=== PATIENT | male | born 1995 | race Caucasian/White ===

== ENCOUNTER 2019-05-31 18:22 | Inpatient (IN) | payer MEDICAID ==
[~2019-05-31] VITALS: Ht 167.6 cm; Wt 86.0 kg
[2019-05-31] MEDS ORDERED: HALOPERIDOL 5 MG TABLET PO PRN (22:00)
[2019-05-31 22:25] VITALS: BP 110/70
[2019-05-31] MEDS ORDERED: ZOLPIDEM TARTRATE 10 MG TABLET ONE (22:50)
[2019-05-31] MEDS: ZOLPIDEM TARTRATE 10 MG TABLET PO PRN (23:17)
[2019-06-01] MEDS ORDERED: IBUPROFEN 400 MG TABLET PO PRN (06:45)
[2019-06-01] MEDS ORDERED: MAGNESIUM HYDROXIDE SUSPENSION 30 ML UDCUP PO PRN (06:45)
[2019-06-01] MEDS ORDERED: DOCUSATE SODIUM 100 MG CAPSULE PO PRN (06:45)
[2019-06-01] MEDS ORDERED: PETROLATUM,WHITE 28 GM JELLY TP PRN (06:45)
[2019-06-01] MEDS ORDERED: NICOTINE 14 MG/24 HOUR PATCH TD PRN (06:45)
[2019-06-01] MEDS ORDERED: MAG HYDROX/AL HYDROX/SIMETH ES 30 ML SUSPENSION UDCUP PO PRN (06:45)
[2019-06-01] MEDS ORDERED: ONDANSETRON HCL 4 MG TABLET PO PRN (06:45)
[2019-06-01] MEDS ORDERED: ALBUTEROL SULFATE HFA 90 MCG/PUFF 8 GM INHALER IH PRN (06:45)
[2019-06-01] MEDS ORDERED: GuaiFENesin/D-METHORPHAN [SUGAR-FREE] 200-20MG/10 ML SYRUP UDCUP PO PRN (06:45)
[2019-06-01] MEDS ORDERED: LOPERAMIDE HCL 2 MG CAPSULE PO PRN (06:45)
[2019-06-01] MEDS ORDERED: CloNIDine HCL 0.1 MG TABLET PO PRN (06:45)
[2019-06-01] MEDS ORDERED: ACETAMINOPHEN 325 MG TABLET PO PRN (06:45)
[2019-06-01 08:21] VITALS: BP 112/60
[2019-06-01] MEDS: LORazepam 2 MG TABLET PO PRN ×3 (09:25→21:03)
[2019-06-01] MEDS: PARoxetine HCL 20 MG TABLET PO SCH (12:44)
[2019-06-01] MEDS: ZOLPIDEM TARTRATE 10 MG TABLET PO PRN (21:02)
[2019-06-02] MEDS: LORazepam 2 MG TABLET PO PRN ×3 (07:38→20:12)
[2019-06-02] MEDS: PARoxetine HCL 20 MG TABLET PO SCH (09:37)
[2019-06-02] MEDS: RisperiDONE 1 MG TABLET PO SCH ×2 (11:45→13:22)
[2019-06-02] MEDS: ZOLPIDEM TARTRATE 10 MG TABLET PO PRN (20:12)
[2019-06-03] MEDS: LORazepam 2 MG TABLET PO PRN ×2 (08:34→13:42)
[2019-06-03] MEDS: RisperiDONE 1 MG TABLET PO SCH (09:00)
[2019-06-03] MEDS: PARoxetine HCL 20 MG TABLET PO SCH (09:12)
[2019-06-03] MEDS: ZOLPIDEM TARTRATE 10 MG TABLET PO PRN (20:43)
[2019-06-04] MEDS: PARoxetine HCL 20 MG TABLET PO SCH (08:31)
[2019-06-04] MEDS: RisperiDONE 1 MG TABLET PO SCH (08:32)
[2019-06-04] MEDS: LORazepam 2 MG TABLET PO PRN ×3 (09:15→20:24)
[2019-06-04] MEDS: ZOLPIDEM TARTRATE 10 MG TABLET PO PRN (20:25)
[2019-06-05 08:14] VITALS: BP 122/75
[2019-06-05] MEDS: RisperiDONE 1 MG TABLET PO SCH (09:00)
[2019-06-05] MEDS: PARoxetine HCL 20 MG TABLET PO SCH (09:11)
[2019-06-05] MEDS: LORazepam 2 MG TABLET PO PRN ×2 (14:35→18:42)
[2019-06-05 16:00] VITALS: BP 128/77
[2019-06-05] MEDS: ZOLPIDEM TARTRATE 10 MG TABLET PO PRN (20:50)
[2019-06-06 08:02] VITALS: BP 131/59
[2019-06-06] MEDS: RisperiDONE 1 MG TABLET PO SCH (08:12)
[2019-06-06] MEDS: PARoxetine HCL 20 MG TABLET PO SCH (08:13)
[2019-06-06] MEDS: LORazepam 2 MG TABLET PO PRN ×2 (08:13→18:01)
[2019-06-06 16:00] VITALS: BP 141/73
[2019-06-06] MEDS: ZOLPIDEM TARTRATE 10 MG TABLET PO PRN (20:00)
[2019-06-07] MEDS: PARoxetine HCL 20 MG TABLET PO SCH (08:20)
[2019-06-07] MEDS: LORazepam 2 MG TABLET PO PRN ×2 (08:20→13:39)
[2019-06-07] MEDS: RisperiDONE 1 MG TABLET PO SCH (08:21)
[2019-06-07 08:44] VITALS: BP 122/69
[2019-06-07] MEDS: ZOLPIDEM TARTRATE 10 MG TABLET PO PRN (20:01)
[2019-06-08] MEDS: PARoxetine HCL 20 MG TABLET PO SCH (08:14)
[2019-06-08 08:21] VITALS: BP 112/76
[2019-06-08] MEDS: RisperiDONE 1 MG TABLET PO SCH (09:00)
[2019-06-08] MEDS: LORazepam 2 MG TABLET PO PRN ×3 (09:07→19:35)
[2019-06-08 16:19] VITALS: BP 131/69
[2019-06-08] MEDS: ZOLPIDEM TARTRATE 10 MG TABLET PO PRN (20:30)
[2019-06-09] MEDS: PARoxetine HCL 20 MG TABLET PO SCH (08:08)
[2019-06-09] MEDS: RisperiDONE 1 MG TABLET PO SCH (08:08)
[2019-06-09] MEDS: LORazepam 2 MG TABLET PO PRN ×3 (08:08→19:37)
[2019-06-09 08:48] VITALS: BP 116/63
[2019-06-09] MEDS: ARIPiprazole 5 MG TABLET PO SCH (09:29)
[2019-06-09 16:05] VITALS: BP 109/60
[2019-06-09] MEDS: ZOLPIDEM TARTRATE 10 MG TABLET PO PRN (21:00)
[2019-06-10 00:16] VITALS: BP 120/73
[2019-06-10] MEDS: LORazepam 2 MG TABLET PO PRN (08:03)
[2019-06-10 08:06] VITALS: BP 128/73
[2019-06-10] MEDS: ARIPiprazole 5 MG TABLET PO SCH (08:36)
[2019-06-10] MEDS ORDERED: PARoxetine HCL 20 MG TABLET PO SCH (09:00)
[2019-06-10] MEDS ORDERED: PARO20TA24 PO (10:07)
[2019-06-10] MEDS ORDERED: ARIP5TAB8 PO (10:07)
== END 2019-06-10 13:30 | disposition home or self-care (01) | DRG 750 ==
LOC: B3A 23:10 → B2S 06-07 13:01
PROVIDERS: ADMIT Psychiatry & Neurology Child & Adolescent Psychiatry; ATTEND Psychiatry & Neurology Child & Adolescent Psychiatry
DX: F20.9 Schizophrenia, unspecified (principal); R45.851 Suicidal ideations; Z91.14 Patient's other noncompliance with medication regimen; F41.9 Anxiety disorder, unspecified; K59.00 Constipation, unspecified; Z79.899 Other long term (current) drug therapy

== ENCOUNTER 2020-05-28 20:53 | Emergency (ER) | payer MEDICAID, OTHER ==
[~2020-05-28] VITALS: Ht 162.6 cm; Wt 90.9 kg
[~2020-05-28 20:53] MED LIST: ARIP5TAB8 PO; PARO20TA24 PO
[2020-05-28] MEDS ORDERED: ARIP10TA8 PO (21:14)
[2020-05-28 21:19] LABS: BASOPHILS % (AUTO) 0.5 % (0.0-2.0); EOSINOPHILS % (AUTO) 1.6 % (1.0-6.0); HEMATOCRIT 45.8 % (41-53); HEMOGLOBIN 15.8 g/dL (13.5-17.5); LYMPHOCYTES # (AUTO) 2.4 K/uL (1.0-4.8); LYMPHOCYTES % (AUTO) 28.1 % (22.0-44.0); MEAN CORPUSCULAR HEMOGLOBIN 31.3 pg (26.0-34.0); MEAN CORPUSCULAR HGB CONC 34.5 G/dL (31.0-37.0); MEAN CORPUSCULAR VOLUME 91 fL (80-100); MONOCYTES # (AUTO) 0.6 K/uL (0.1-1.0); MONOCYTES % (AUTO) 7.5 % (2.0-9.0); NEUTROPHILS # (AUTO) 5.4 K/uL (1.8-7.7); NEUTROPHILS % (AUTO) 62.3 % (40.0-70.0); PLATELET COUNT (AUTO) 268 K/uL (150-450); RED BLOOD CELL COUNT(AUTO) 5.06 MIL/uL (4.50-5.90)
[2020-05-28 21:42] LABS: ANION GAP 7 mmol/L (8-16); CALCIUM, TOTAL 9.3 mg/dL (8.8-10.5); CARBON DIOXIDE 28 mmol/L (22-29); CHLORIDE 102 mmol/L (98-107); CREATININE 0.89 mg/dL (0.60-1.30); GLOMERULAR FILTR. RATE CALC > 60 mL/min (>60); GLUCOSE,RANDOM 114 mg/dL (70-110); POTASSIUM 3.7 mmol/L (3.5-5.1); SODIUM SERUM 137 mmol/L (136-145); UREA NITROGEN, BLOOD 8 mg/dL (7-18)
[2020-05-28 21:50] LABS: ALANINE AMINOTRANSFERASE 83 U/L (12-78); ALKALINE PHOSPHATASE 69 U/L (46-116); ASPARTATE AMINOTRANSFERASE 45 U/L (15-37); BILIRUBIN,TOTAL 0.4 mg/dL (0.1-1.0); TOTAL PROTEIN, SERUM 7.5 g/dL (6.4-8.2)
[2020-05-28 21:50] LABS: APPEARANCE,URINE CLEAR (CLEAR); BILIRUBIN,URINE NEGATIVE (NEGATIVE); GLUCOSE, URINE (UA) NEGATIVE (NEGATIVE); KETONES,URINE NEGATIVE (NEGATIVE); LEUKOCYTE ESTERASE ,URINE NEGATIVE (NEGATIVE); NITRATE,URINE NEGATIVE (NEGATIVE); OCCULT BLOOD,URINE NEGATIVE (NEGATIVE); PH,URINE 7.5 (5.0-8.0); PROTEIN,URINE NEGATIVE (NEGATIVE); UROBILINOGEN,URINE 0.2 mg/dL (<=1.0)
[2020-05-28 21:56] LABS: AMPHET/METH SCREEN,URINE NEGATIVE (NEGATIVE); BARBITURATE SCREEN, URINE NEGATIVE (NEGATIVE); BENZODIAZEPINES SCREEN,URINE NEGATIVE (NEGATIVE); CANNABINOID SCREEN,URINE NEGATIVE (NEGATIVE); COCAINE SCREEN,URINE NEGATIVE (NEGATIVE); METHADONE SCREEN, URINE NEGATIVE (NEGATIVE); OPIATE SCREEN,URINE NEGATIVE (NEGATIVE)
[2020-05-28 22:01] LABS: PHENCYCLIDINE SCREEN,URINE NEGATIVE (NEGATIVE)
[2020-05-29 01:15] VITALS: BP 131/72
[2020-05-29] MEDS ORDERED: HydrOXYzine HCL 50 MG TABLET PO ONE (01:15)
[2020-05-29] MEDS ORDERED: HydrOXYzine PAMOATE 50 MG CAPSULE ONE (01:37)
[2020-05-29] MEDS ORDERED: GABA-1201 PO (01:59)
== END 2020-05-29 02:06 | disposition home or self-care (01) ==
LOC: EMS 20:53
DX: F25.9 Schizoaffective disorder, unspecified (principal); F41.9 Anxiety disorder, unspecified; F17.210 Nicotine dependence, cigarettes, uncomplicated; Z91.030 Bee allergy status; Z91.018 Allergy to other foods; Z79.899 Other long term (current) drug therapy
CPT/HCPCS: 36415; 80053; 80307; 81003; 85025; 99284; G0480